=== PATIENT | male | born 1945 | race Caucasian/White ===

== ENCOUNTER 2020-10-27 10:41 | Inpatient (IN) ==
[2020-10-27] MEDS ORDERED: DILTIAZEM 50 MG/10 ML VIAL IV STA (11:01)
[2020-10-27] MEDS: DILTIAZEM INJ 100 MG in SODIUM CHLORIDE 0.9% 100 ML IV SCH ×2 (11:17→18:53)
[2020-10-27 11:21] LABS: Basophils % 0.2 % (0.0-0.8); Eosinophils # 0.2 10*3/uL (0.0-0.87); Eosinophils % 1.5 % (0.00-10.9); Hematocrit 47.3 VOL% (42.0-52.0); Hemoglobin 15.9 GM/DL (14.0-18.0); Immature Granulocytes % 0.5 %; Immature Granulocytes Absolute 0.07 #; Lymphocytes # 6.2 10*3/uL (1.4-4.0); Lymphocytes % 46.4 % (21.2-54.2); Mean Corpuscular HGB Conc 33.6 GM/DL (32-36); Mean Corpuscular Volume 93.5 FL (87-102); Mean Platelet Volume 10.2 FL (9.6-12.0); Monocytes % 9.6 % (1.7-12.7); Neutrophils % 41.8 % (38.7-73.9); Platelet Count 178 T/CUMM (130-400); Red Blood Count 5.06 MC/CUMM (3.8-5.5); Red Cell Distribution Width 13.4 % (9.3-17.3); White Blood Count 13.4 T/CUMM (4-12)
[2020-10-27 11:37] LABS: INR 2.4; PT Patient Result 24.8 SECS (9.8-11.9); Partial Thromboplastin Time 35.3 SECS (23.9-33.8)
[2020-10-27 11:42] LABS: Eosinophils 2 % (0-10); Lymphocytes 41 % (20-55); Platelet Estimate Adequate; Segmented Neutrophils 48 % (50-85); Total Cells Counted 100
[2020-10-27 11:43] LABS: Atypical Lymphocytes Few
[2020-10-27 11:46] LABS: Albumin 3.7 G/DL (3.4-5.0); Calcium 9.7 MG/DL (8.5-10.1); Osmolality,Calculated 279.4 MOS/KG (273-304); Potassium 4.6 MMOL/L (3.5-5.1); Total Protein 7.6 G/DL (6.4-8.2)
[2020-10-27] MEDS ORDERED: ACETAMINOPHEN 325 MG TABLET PO PRN (11:51)
[2020-10-27] MEDS ORDERED: GLUCAGON 1 MG VIAL IM PRN ×3 (11:51→15:53)
[2020-10-27] MEDS ORDERED: DEXTROSE 50% 25 GM/50 ML VIAL IV PRN ×3 (11:51→15:53)
[2020-10-27] MEDS ORDERED: ONDANSETRON 4 MG/2 ML VIAL IV PRN (11:51)
[2020-10-27] MEDS ORDERED: FUROSEMIDE 40 MG TABLET PO PRN (13:04)
[2020-10-27] MEDS: INSULIN LISPRO 100 UNIT/ML SUBCUT SCH ×2 (17:28→21:14)
[2020-10-27] MEDS ORDERED: METOPROLOL TARTRATE 50 MG TABLET PO SCH (21:00)
[2020-10-28] MEDS: DILTIAZEM INJ 100 MG in SODIUM CHLORIDE 0.9% 100 ML IV SCH (01:48)
[2020-10-28 06:55] LABS: Basophils % 0.1 % (0.0-0.8); Eosinophils # 0.2 10*3/uL (0.0-0.87); Eosinophils % 2.2 % (0.00-10.9); Hematocrit 42.6 VOL% (42.0-52.0); Hemoglobin 13.8 GM/DL (14.0-18.0); Immature Granulocytes % 0.5 %; Immature Granulocytes Absolute 0.05 #; Lymphocytes # 4.7 10*3/uL (1.4-4.0); Lymphocytes % 42.7 % (21.2-54.2); Mean Corpuscular HGB Conc 32.4 GM/DL (32-36); Mean Corpuscular Volume 96.8 FL (87-102); Mean Platelet Volume 10.4 FL (9.6-12.0); Monocytes % 7.8 % (1.7-12.7); Neutrophils % 46.7 % (38.7-73.9); Platelet Count 187 T/CUMM (130-400); Red Cell Distribution Width 13.5 % (9.3-17.3); White Blood Count 10.9 T/CUMM (4-12)
[2020-10-28 07:03] LABS: INR 1.8; PT Patient Result 18.9 SECS (9.8-11.9)
[2020-10-28 07:37] LABS: Calcium 9.1 MG/DL (8.5-10.1); Osmolality,Calculated 282.1 MOS/KG (273-304); Potassium 4.5 MMOL/L (3.5-5.1); Risk Ratio 6.5; Thyroid Stimulating Hormone 1.42 uIU/ml (0.358-3.74); VLDL CHOLESTEROL 31.2 MG/DL
[2020-10-28] MEDS: FENOFIBRATE 160 MG TABLET PO SCH (07:46)
[2020-10-28] MEDS ORDERED: DILTIAZEM CD 240 MG CAPSULE PO SCH (09:00)
[2020-10-28] MEDS: INSULIN LISPRO 100 UNIT/ML SUBCUT SCH ×4 (09:10→22:08)
[2020-10-28] MEDS: ATORVASTATIN 40 MG TABLET PO SCH (09:12)
[2020-10-28] MEDS: METOPROLOL TARTRATE 100 MG TABLET PO SCH ×2 (09:12→21:58)
[2020-10-28] MEDS: DIGOXIN 0.125 MG TABLET PO SCH (09:12)
[2020-10-28] MEDS: EZETIMIBE 10 MG TABLET PO SCH (09:12)
[2020-10-28] MEDS: WARFARIN 3 MG TABLET PO SCH (18:04)
[2020-10-29 06:23] LABS: Basophils % 0.3 % (0.0-0.8); Eosinophils # 0.2 10*3/uL (0.0-0.87); Hematocrit 42.4 VOL% (42.0-52.0); Hemoglobin 14.2 GM/DL (14.0-18.0); Immature Granulocytes % 0.8 %; Immature Granulocytes Absolute 0.08 #; Lymphocytes # 4.3 10*3/uL (1.4-4.0); Lymphocytes % 40.7 % (21.2-54.2); Mean Corpuscular HGB Conc 33.5 GM/DL (32-36); Mean Corpuscular Volume 95.3 FL (87-102); Mean Platelet Volume 10.5 FL (9.6-12.0); Monocytes % 7.4 % (1.7-12.7); Neutrophils % 48.8 % (38.7-73.9); Platelet Count 186 T/CUMM (130-400); Red Blood Count 4.45 MC/CUMM (3.8-5.5); Red Cell Distribution Width 13.4 % (9.3-17.3); White Blood Count 10.5 T/CUMM (4-12)
[2020-10-29 06:42] LABS: Calcium 9.2 MG/DL (8.5-10.1); Osmolality,Calculated 287.1 MOS/KG (273-304); Potassium 4.7 MMOL/L (3.5-5.1)
[2020-10-29 06:44] LABS: INR 2.2; PT Patient Result 23.1 SECS (9.8-11.9)
[2020-10-29] MEDS: INSULIN LISPRO 100 UNIT/ML SUBCUT SCH ×4 (08:50→21:48)
[2020-10-29] MEDS: EZETIMIBE 10 MG TABLET PO SCH (08:50)
[2020-10-29] MEDS: METOPROLOL TARTRATE 100 MG TABLET PO SCH ×2 (08:51→21:06)
[2020-10-29] MEDS: FENOFIBRATE 160 MG TABLET PO SCH (08:51)
[2020-10-29] MEDS: DIGOXIN 0.125 MG TABLET PO SCH (08:51)
[2020-10-29] MEDS: DILTIAZEM CD 180 MG CAPSULE PO SCH (08:51)
[2020-10-29] MEDS: ATORVASTATIN 40 MG TABLET PO SCH (08:51)
[2020-10-29] MEDS: INSULIN ASPART PROTAMINE/ASPART 70/30 100 UNIT/ML SUBCUT SCH ×2 (08:55→21:49)
[2020-10-29] MEDS: DILTIAZEM INJ 100 MG in SODIUM CHLORIDE 0.9% 100 ML IV SCH (11:26)
[2020-10-29] MEDS: WARFARIN 3 MG TABLET PO SCH (17:08)
[2020-10-30 06:14] LABS: INR 1.7; PT Patient Result 18.6 SECS (9.8-11.9)
[2020-10-30] MEDS: INSULIN LISPRO 100 UNIT/ML SUBCUT SCH ×2 (07:51→11:50)
[2020-10-30] MEDS: INSULIN ASPART PROTAMINE/ASPART 70/30 100 UNIT/ML SUBCUT SCH (08:17)
[2020-10-30] MEDS: ATORVASTATIN 40 MG TABLET PO SCH (08:18)
[2020-10-30] MEDS: METOPROLOL TARTRATE 100 MG TABLET PO SCH (08:19)
[2020-10-30] MEDS: EZETIMIBE 10 MG TABLET PO SCH (08:19)
[2020-10-30] MEDS: DILTIAZEM CD 180 MG CAPSULE PO SCH (08:19)
[2020-10-30] MEDS: DIGOXIN 0.125 MG TABLET PO SCH (08:20)
[2020-10-30] MEDS: FENOFIBRATE 160 MG TABLET PO SCH (08:23)
[2020-10-30 12:01] VITALS: BP 117/59
[2020-10-30] MEDS: DILTIAZEM INJ 100 MG in SODIUM CHLORIDE 0.9% 100 ML IV SCH (12:40)
== END 2020-10-30 13:00 | disposition home or self-care (01) | DRG 310 ==
LOC: N.EDINP 10:41 → N.ED 10:41 → N.TELEN 15:11 → SUATTDRO 10-29 13:50
PROVIDERS: ADMIT Internal Medicine; ATTEND Internal Medicine

== ENCOUNTER 2021-07-13 17:50 | Observation (INO) ==
[2021-07-13 19:00] LABS: Basophils % 0.1 % (0.0-0.8); Eosinophils % 0.2 % (0.00-10.9); Hematocrit 44.8 VOL% (42.0-52.0); Hemoglobin 14.8 GM/DL (14.0-18.0); Immature Granulocytes % 0.2 %; Immature Granulocytes Absolute 0.04 #; Lymphocytes # 8.4 10*3/uL (1.4-4.0); Lymphocytes % 50.9 % (21.2-54.2); Mean Corpuscular Volume 95.3 FL (87-102); Mean Platelet Volume 10.4 FL (9.6-12.0); Monocytes % 6.6 % (1.7-12.7); Platelet Count 182 T/CUMM (130-400); Red Cell Distribution Width 13.2 % (9.3-17.3); White Blood Count 16.5 T/CUMM (4-12)
[2021-07-13 19:19] LABS: Albumin 3.6 G/DL (3.4-5.0); Bilirubin,Total 0.7 MG/DL (0.20-1.00); Calcium 9.5 MG/DL (8.5-10.1); Osmolality,Calculated 283.8 MOS/KG (273-304); Potassium 3.8 MMOL/L (3.5-5.1); Total Protein 6.7 G/DL (6.4-8.2)
[2021-07-13 19:24] LABS: Band Neutrophils 1 % (0-10); Lymphocytes 52 % (20-55); Segmented Neutrophils 41 % (50-85); Total Cells Counted 100
[2021-07-13 19:25] LABS: Microcytosis Slight; Reactive Lymphocytes Few
[2021-07-13 19:26] LABS: Platelet Estimate Normal
[2021-07-13] MEDS ORDERED: DILTIAZEM 50 MG/10 ML VIAL IV STA (20:42)
[2021-07-13] MEDS ORDERED: DILTIAZEM INJ 100 MG in SODIUM CHLORIDE 0.9% 100 ML IV SCH (21:00)
[2021-07-13 21:20] LABS: PT Patient Result 21.2 SECS (10.5-12.0)
[2021-07-13 21:43] LABS: Albumin 3.5 G/DL (3.4-5.0); Bilirubin,Total 0.8 MG/DL (0.20-1.00); Calcium 9.2 MG/DL (8.5-10.1); Osmolality,Calculated 287.7 MOS/KG (273-304); Potassium 3.9 MMOL/L (3.5-5.1); Thyroid Stimulating Hormone 1.35 uIU/ml (0.358-3.74); Total Protein 6.7 G/DL (6.4-8.2)
[2021-07-13] MEDS ORDERED: DEXTROSE 50% 25 GM/50 ML VIAL IV PRN (21:54)
[2021-07-13] MEDS ORDERED: DOCUSATE SODIUM 100 MG CAPSULE PO PRN (21:54)
[2021-07-13] MEDS ORDERED: ONDANSETRON 4 MG/2 ML VIAL IV PRN (21:54)
[2021-07-13] MEDS ORDERED: SIMETHICONE CHEW 125 MG TABLET PO PRN (21:54)
[2021-07-13] MEDS ORDERED: ACETAMINOPHEN 325 MG TABLET PO PRN (21:54)
[2021-07-13] MEDS ORDERED: GLUCAGON 1 MG VIAL IM PRN (21:54)
[2021-07-13] MEDS ORDERED: MELATONIN 3 MG TABLET PO PRN (21:54)
[2021-07-13] MEDS ORDERED: DEXTROSE 50% 25 GM/50 ML SYRINGE IV PRN (22:19)
[2021-07-14] MEDS: DILTIAZEM INJ 100 MG in SODIUM CHLORIDE 0.9% 100 ML IV SCH (04:01)
[2021-07-14 06:52] LABS: Basophils % 0.1 % (0.0-0.8); Eosinophils % 0.3 % (0.00-10.9); Hematocrit 41.7 VOL% (42.0-52.0); Hemoglobin 13.4 GM/DL (14.0-18.0); Immature Granulocytes % 0.4 %; Immature Granulocytes Absolute 0.05 #; Lymphocytes # 6.8 10*3/uL (1.4-4.0); Lymphocytes % 50.3 % (21.2-54.2); Mean Corpuscular HGB Conc 32.1 GM/DL (32-36); Mean Corpuscular Volume 97.2 FL (87-102); Mean Platelet Volume 10.3 FL (9.6-12.0); Monocytes % 8.5 % (1.7-12.7); Neutrophils % 40.4 % (38.7-73.9); Platelet Count 162 T/CUMM (130-400); Red Blood Count 4.29 MC/CUMM (3.8-5.5); Red Cell Distribution Width 13.6 % (9.3-17.3); White Blood Count 13.6 T/CUMM (4-12)
[2021-07-14 07:07] LABS: INR 1.9; PT Patient Result 19.8 SECS (10.5-12.0)
[2021-07-14 07:12] LABS: Eosinophils 1 % (0-10); Lymphocytes 40 % (20-55); Platelet Estimate Adequate; Segmented Neutrophils 49 % (50-85); Total Cells Counted 100
[2021-07-14 07:13] LABS: Hypochromia Slight; Microcytosis Slight
[2021-07-14 07:23] LABS: Albumin 2.9 G/DL (3.4-5.0); Bilirubin,Total 0.8 MG/DL (0.20-1.00); Calcium 8.6 MG/DL (8.5-10.1); Ferritin 352.2 ng/mL (26-388); Osmolality,Calculated 286.7 MOS/KG (273-304); Potassium 3.8 MMOL/L (3.5-5.1); Total Protein 6.2 G/DL (6.4-8.2)
[2021-07-14] MEDS: INSULIN REGULAR 100 UNIT/ML SUBCUT SCH ×4 (08:19→21:52)
[2021-07-14] MEDS: AZITHROMYCIN 250 MG TABLET PO SCH (09:16)
[2021-07-14] MEDS: ASCORBIC ACID 500 MG TABLET PO SCH ×2 (09:17→21:53)
[2021-07-14] MEDS: FAMOTIDINE 20 MG TABLET PO SCH ×2 (09:17→21:53)
[2021-07-14] MEDS: CHOLECALCIFEROL 1,000 UNIT TABLET PO SCH (09:17)
[2021-07-14] MEDS: CETIRIZINE 10 MG TABLET PO SCH (09:17)
[2021-07-14] MEDS: ZINC GLUCONATE 50 MG TABLET PO SCH (09:17)
[2021-07-14] MEDS: ATORVASTATIN 40 MG TABLET PO SCH (09:19)
[2021-07-14] MEDS: METOPROLOL TARTRATE 100 MG TABLET PO SCH ×2 (09:19→21:53)
[2021-07-14] MEDS ORDERED: NITROGLYCERIN SL 0.4 MG TABLET SL PRN (09:43)
[2021-07-14] MEDS ORDERED: DILTIAZEM INJ 100 MG in SODIUM CHLORIDE 0.9% 100 ML IV SCH (10:30)
[2021-07-14] MEDS: DILTIAZEM CD 180 MG CAPSULE PO SCH (12:23)
[2021-07-14] MEDS: DIGOXIN 0.125 MG TABLET PO SCH (12:23)
[2021-07-14] MEDS: WARFARIN 3 MG TABLET PO SCH (17:32)
[2021-07-15 05:06] LABS: Basophils % 0.1 % (0.0-0.8); Eosinophils # 0.1 10*3/uL (0.0-0.87); Eosinophils % 0.8 % (0.00-10.9); Hematocrit 43.5 VOL% (42.0-52.0); Hemoglobin 13.9 GM/DL (14.0-18.0); Immature Granulocytes % 0.3 %; Immature Granulocytes Absolute 0.04 #; Lymphocytes # 7.9 10*3/uL (1.4-4.0); Lymphocytes % 54.5 % (21.2-54.2); Mean Platelet Volume 10.4 FL (9.6-12.0); Monocytes % 8.1 % (1.7-12.7); Neutrophils % 36.2 % (38.7-73.9); Platelet Count 169 T/CUMM (130-400); Red Blood Count 4.44 MC/CUMM (3.8-5.5); Red Cell Distribution Width 13.5 % (9.3-17.3); White Blood Count 14.4 T/CUMM (4-12)
[2021-07-15 05:16] LABS: INR 1.7; PT Patient Result 17.8 SECS (10.5-12.0)
[2021-07-15 05:25] LABS: Eosinophils 1 % (0-10); Lymphocytes 56 % (20-55); Platelet Estimate Adequate; Segmented Neutrophils 39 % (50-85); Total Cells Counted 100
[2021-07-15 05:26] LABS: Atypical Lymphocytes Few; Hypochromia Slight; Microcytosis Slight
[2021-07-15 05:36] LABS: Calcium 9.3 MG/DL (8.5-10.1); Osmolality,Calculated 278.2 MOS/KG (273-304); Potassium 3.9 MMOL/L (3.5-5.1)
[2021-07-15] MEDS: INSULIN REGULAR 100 UNIT/ML SUBCUT SCH ×4 (07:48→21:46)
[2021-07-15] MEDS: ASPIRIN EC 81 MG TABLET PO SCH (09:05)
[2021-07-15] MEDS: METOPROLOL TARTRATE 100 MG TABLET PO SCH ×2 (09:06→21:24)
[2021-07-15] MEDS: CETIRIZINE 10 MG TABLET PO SCH (09:06)
[2021-07-15] MEDS: ZINC GLUCONATE 50 MG TABLET PO SCH (09:06)
[2021-07-15] MEDS: ATORVASTATIN 40 MG TABLET PO SCH (09:06)
[2021-07-15] MEDS: ASCORBIC ACID 500 MG TABLET PO SCH ×2 (09:06→21:24)
[2021-07-15] MEDS: CHOLECALCIFEROL 1,000 UNIT TABLET PO SCH (09:06)
[2021-07-15] MEDS: FAMOTIDINE 20 MG TABLET PO SCH ×2 (09:06→21:24)
[2021-07-15] MEDS: AZITHROMYCIN 250 MG TABLET PO SCH (09:06)
[2021-07-15] MEDS: FENOFIBRATE 160 MG TABLET PO SCH (09:46)
[2021-07-15] MEDS: EZETIMIBE 10 MG TABLET PO SCH (09:46)
[2021-07-15] MEDS: DILTIAZEM CD 180 MG CAPSULE PO SCH (09:46)
[2021-07-15] MEDS ORDERED: DILTIAZEM CD 120 MG CAPSULE PO ONE (10:08)
[2021-07-15] MEDS: DIGOXIN 0.125 MG TABLET PO SCH (13:20)
[2021-07-15 17:11] LABS: Bilirubin,Urine Negative (Negative); Blood, Urine Negative (Negative); Glucose,Urine (UA) >=500 mg/dL (Negative); Ketones,Urine 5 mg/dL (Negative); Mucus,Urine Occasional /LPF (Occasional); Nitrite,Urine Negative (Negative); Protein,Urine 100 MG/DL; Squamous Epithelial Cell,Urine Occasional /HPF (0-10); Urine Appearance CLEAR (Clear); Urine Color Yellow (Yellow); Urine Specific Gravity 1.026 (1.001-1.035); Urine Urobilinogen < 2.0 EU/DL (<2.0)
[2021-07-15] MEDS: WARFARIN 3 MG TABLET PO SCH (18:31)
[2021-07-16] MEDS: DILTIAZEM INJ 100 MG in SODIUM CHLORIDE 0.9% 100 ML IV SCH (06:38)
[2021-07-16 06:39] LABS: Basophils % 0.2 % (0.0-0.8); Eosinophils # 0.1 10*3/uL (0.0-0.87); Eosinophils % 1.1 % (0.00-10.9); Hematocrit 44.6 VOL% (42.0-52.0); Immature Granulocytes % 0.2 %; Immature Granulocytes Absolute 0.03 #; Lymphocytes # 7.1 10*3/uL (1.4-4.0); Lymphocytes % 57.6 % (21.2-54.2); Mean Corpuscular HGB Conc 31.4 GM/DL (32-36); Mean Platelet Volume 10.6 FL (9.6-12.0); Monocytes % 7.7 % (1.7-12.7); Neutrophils % 33.2 % (38.7-73.9); Platelet Count 173 T/CUMM (130-400); Red Blood Count 4.46 MC/CUMM (3.8-5.5); Red Cell Distribution Width 13.3 % (9.3-17.3); White Blood Count 12.3 T/CUMM (4-12)
[2021-07-16 06:59] LABS: Calcium 8.4 MG/DL (8.5-10.1); Osmolality,Calculated 289.8 MOS/KG (273-304); Potassium 4.1 MMOL/L (3.5-5.1)
[2021-07-16 07:10] LABS: Eosinophils 2 % (0-10); Lymphocytes 47 % (20-55); Platelet Estimate Normal; Segmented Neutrophils 44 % (50-85); Total Cells Counted 100
[2021-07-16] MEDS: EZETIMIBE 10 MG TABLET PO SCH (08:44)
[2021-07-16] MEDS: FENOFIBRATE 160 MG TABLET PO SCH (08:44)
[2021-07-16] MEDS: METOPROLOL TARTRATE 100 MG TABLET PO SCH ×2 (08:44→20:58)
[2021-07-16] MEDS: ZINC GLUCONATE 50 MG TABLET PO SCH (08:44)
[2021-07-16] MEDS: ASCORBIC ACID 500 MG TABLET PO SCH ×2 (08:44→20:58)
[2021-07-16] MEDS: INSULIN REGULAR 100 UNIT/ML SUBCUT SCH ×4 (08:44→20:58)
[2021-07-16] MEDS: FAMOTIDINE 20 MG TABLET PO SCH ×2 (08:45→20:58)
[2021-07-16] MEDS: CETIRIZINE 10 MG TABLET PO SCH (08:45)
[2021-07-16] MEDS: CHOLECALCIFEROL 1,000 UNIT TABLET PO SCH (08:45)
[2021-07-16] MEDS: ASPIRIN EC 81 MG TABLET PO SCH (08:45)
[2021-07-16] MEDS: DEXAMETHASONE 4 MG TABLET PO SCH (08:45)
[2021-07-16] MEDS: ATORVASTATIN 40 MG TABLET PO SCH (08:45)
[2021-07-16] MEDS ORDERED: DILTIAZEM CD 240 MG CAPSULE PO SCH (09:00)
[2021-07-16] MEDS ORDERED: DILTIAZEM CD 120 MG CAPSULE PO ONE (10:04)
[2021-07-16 10:43] LABS: PT Patient Result 21.1 SECS (10.5-12.0)
[2021-07-16] MEDS: LOSARTAN 50 MG TABLET PO SCH (12:15)
[2021-07-16] MEDS: DIGOXIN 0.125 MG TABLET PO SCH (13:45)
[2021-07-16] MEDS: WARFARIN 3 MG TABLET PO SCH (18:03)
[2021-07-17 05:36] LABS: Basophils % 0.1 % (0.0-0.8); Hematocrit 46.9 VOL% (42.0-52.0); Hemoglobin 15.1 GM/DL (14.0-18.0); Immature Granulocytes % 0.4 %; Immature Granulocytes Absolute 0.06 #; Lymphocytes # 8.7 10*3/uL (1.4-4.0); Lymphocytes % 54.2 % (21.2-54.2); Mean Corpuscular HGB Conc 32.2 GM/DL (32-36); Mean Corpuscular Volume 97.5 FL (87-102); Mean Platelet Volume 10.3 FL (9.6-12.0); Monocytes % 3.5 % (1.7-12.7); Neutrophils % 41.8 % (38.7-73.9); Platelet Count 204 T/CUMM (130-400); Red Blood Count 4.81 MC/CUMM (3.8-5.5); Red Cell Distribution Width 13.1 % (9.3-17.3); White Blood Count 16.1 T/CUMM (4-12)
[2021-07-17 05:44] LABS: PT Patient Result 21.4 SECS (10.5-12.0)
[2021-07-17 06:19] LABS: Calcium 8.6 MG/DL (8.5-10.1); Osmolality,Calculated 293.7 MOS/KG (273-304); Potassium 4.4 MMOL/L (3.5-5.1)
[2021-07-17] MEDS: INSULIN REGULAR 100 UNIT/ML SUBCUT SCH (08:27)
[2021-07-17] MEDS: ASPIRIN EC 81 MG TABLET PO SCH (08:27)
[2021-07-17] MEDS: LOSARTAN 50 MG TABLET PO SCH (08:31)
[2021-07-17] MEDS: DEXAMETHASONE 4 MG TABLET PO SCH (08:31)
[2021-07-17] MEDS: METOPROLOL TARTRATE 100 MG TABLET PO SCH (08:32)
[2021-07-17] MEDS: ATORVASTATIN 40 MG TABLET PO SCH (08:32)
[2021-07-17] MEDS: FENOFIBRATE 160 MG TABLET PO SCH (08:33)
[2021-07-17] MEDS: ZINC GLUCONATE 50 MG TABLET PO SCH (08:33)
[2021-07-17] MEDS: EZETIMIBE 10 MG TABLET PO SCH (08:33)
[2021-07-17] MEDS: CHOLECALCIFEROL 1,000 UNIT TABLET PO SCH (08:33)
[2021-07-17] MEDS: FAMOTIDINE 20 MG TABLET PO SCH (08:33)
[2021-07-17] MEDS: CETIRIZINE 10 MG TABLET PO SCH (08:34)
[2021-07-17] MEDS: ASCORBIC ACID 500 MG TABLET PO SCH (08:34)
[2021-07-17 08:36] VITALS: BP 128/105
[2021-07-17] MEDS ORDERED: DILTIAZEM CD 180 MG CAPSULE PO SCH (09:00)
== END 2021-07-17 09:45 | disposition home or self-care (01) ==
LOC: N.ED 17:50 → N.EDINP 21:54 → INTOOBSV 21:54 → SUATTDRO 21:54 → N.CC 07-15 19:28
PROVIDERS: ADMIT Hospitalist; ATTEND Internal Medicine

== ENCOUNTER 2022-08-16 21:49 | Observation (INO) ==
[2022-08-16] MEDS ORDERED: DILTIAZEM 25 MG/5 ML VIAL IV ONE (22:04)
[2022-08-16] MEDS ORDERED: DILTIAZEM 100 MG VIAL.ADD IV ONE (22:04)
[2022-08-16] MEDS ORDERED: DILTIAZEM 50 MG/10 ML VIAL IV STA (22:08)
[2022-08-16] MEDS ORDERED: MORPHINE 2 MG/1 ML SYRINGE IV STA ×2 (22:11→23:54)
[2022-08-16] MEDS ORDERED: ONDANSETRON 4 MG/2 ML VIAL IV STA ×2 (22:11→23:54)
[2022-08-16] MEDS: DILTIAZEM INJ 100 MG in SODIUM CHLORIDE 0.9% 100 ML IV SCH (22:12)
[2022-08-16 22:30] LABS: Basophils % 0.2 % (0.0-0.8); Hematocrit 41.6 VOL% (42.0-52.0); Hemoglobin 13.6 GM/DL (14.0-18.0); Immature Granulocytes % 0.4 %; Immature Granulocytes Absolute 0.06 #; Lymphocytes # 7.8 10*3/uL (1.4-4.0); Lymphocytes % 49.6 % (21.2-54.2); Mean Corpuscular HGB Conc 32.7 GM/DL (32-36); Mean Corpuscular Volume 94.8 FL (87-102); Mean Platelet Volume 10.3 FL (9.6-12.0); Monocytes # 1.5 10*3/uL (0.11-0.8); Monocytes % 9.6 % (1.7-12.7); Neutrophils % 40.2 % (38.7-73.9); Platelet Count 217 T/CUMM (130-400); Red Blood Count 4.39 MC/CUMM (3.8-5.5); Red Cell Distribution Width 13.2 % (9.3-17.3); White Blood Count 15.77 T/CUMM (4-12)
[2022-08-16 22:40] LABS: INR 1.3; PT Patient Result 13.9 SECS (10.1-12.1)
[2022-08-16 22:53] LABS: Lymphocytes 53 % (20-55); Platelet Estimate Adequate; Total Cells Counted 100
[2022-08-16 23:01] LABS: Alanine Aminotransferase 22 U/L (16-61); Albumin 2.8 G/DL (3.4-5.0); Alkaline Phosphatase 37 U/L (45-117); Aspartate Amino Transferase 25 U/L (0-37); Blood Urea Nitrogen 34 MG/DL (7-18); Calcium 8.6 MG/DL (8.5-10.1); Carbon Dioxide 21 MMOL/L (21-32); Chloride 106 MMOL/L (98-107); Glucose 85 MG/DL (74-106); Osmolality,Calculated 279.8 MOS/KG (273-304); Sodium 137 MMOL/L (136-145); Total Protein 6.1 G/DL (6.4-8.2)
[2022-08-16] MEDS ORDERED: ENOXAPARIN 100 MG/ML SYRINGE SUBCUT STA (23:53)
[2022-08-16] MEDS ORDERED: NITROGLYCERIN 2% OINT 1 INCH/GM PACK TOP STA (23:54)
[2022-08-16] MEDS: ASPIRIN EC 325 MG TABLET PO STA ×2 (23:58)
[2022-08-17] MEDS ORDERED: diphenhydrAMINE CAP 25 MG CAPSULE PO PRN (00:24)
[2022-08-17] MEDS ORDERED: ONDANSETRON 4 MG/2 ML VIAL IV PRN (00:24)
[2022-08-17] MEDS ORDERED: hydrALAZINE 20 MG/1 ML VIAL IV PRN (00:24)
[2022-08-17] MEDS ORDERED: ACETAMINOPHEN 325 MG TABLET PO PRN (00:24)
[2022-08-17] MEDS ORDERED: ZALEPLON 5 MG CAPSULE PO PRN (00:24)
[2022-08-17] MEDS ORDERED: NICOTINE 21 MG/24 HR PATCH TRANSDERM PRN (00:24)
[2022-08-17] MEDS ORDERED: MORPHINE 2 MG/1 ML SYRINGE IV PRN (00:24)
[2022-08-17] MEDS ORDERED: PROMETHAZINE 25 MG/1 ML VIAL IM PRN (00:24)
[2022-08-17] MEDS ORDERED: guaiFENesin/DM ER 600-30 MG TABLET PO PRN (00:24)
[2022-08-17 02:48] LABS: Mucus,Urine Occasional /LPF (Occasional); RBC,Urine 5 /HPF (0-4); Squamous Epithelial Cell,Urine Occasional /HPF (0-10); Urine Color Yellow (Yellow)
[2022-08-17 02:49] LABS: Bilirubin,Urine Small mg/dL (Negative); Blood, Urine Moderate mg/dL (Negative); Glucose,Urine (UA) 500 mg/dL (Negative); Ketones,Urine Negative (Negative); Nitrite,Urine Negative (Negative); Protein,Urine >=300 mg/dL (Negative); Urine Appearance Clear (Clear); Urine Urobilinogen 0.2 eU/dL (<2.0); Urine pH 5.5 (4.5-8.0)
[2022-08-17 02:55] LABS: Barbiturates Screen,Urine Negative (Negative); Benzodiazepines Screen,Urine Negative (Negative); Cannabinoid Screen,Urine Negative (Negative); Opiate Screen,Urine Positive (Negative); Phencyclidine Screen,Urine Negative (Negative)
[2022-08-17 05:02] LABS: Basophils % 0.2 % (0.0-0.8); Hematocrit 39.6 VOL% (42.0-52.0); Hemoglobin 12.7 GM/DL (14.0-18.0); Immature Granulocytes % 0.3 %; Immature Granulocytes Absolute 0.05 #; Lymphocytes # 8.2 10*3/uL (1.4-4.0); Lymphocytes % 49.2 % (21.2-54.2); Mean Corpuscular HGB Conc 32.1 GM/DL (32-36); Mean Corpuscular Volume 96.8 FL (87-102); Mean Platelet Volume 10.4 FL (9.6-12.0); Monocytes # 1.7 10*3/uL (0.11-0.8); Monocytes % 10.4 % (1.7-12.7); Neutrophils % 39.9 % (38.7-73.9); Platelet Count 212 T/CUMM (130-400); Red Blood Count 4.09 MC/CUMM (3.8-5.5); Red Cell Distribution Width 13.5 % (9.3-17.3); White Blood Count 16.66 T/CUMM (4-12)
[2022-08-17 05:27] LABS: Band Neutrophils 5 % (0-10); Lymphocytes 58 % (20-55); Total Cells Counted 100
[2022-08-17 05:34] LABS: Calcium 8.8 MG/DL (8.5-10.1); Osmolality,Calculated 278.8 MOS/KG (273-304); Potassium 3.7 MMOL/L (3.5-5.1)
[2022-08-17] MEDS ORDERED: DEXTROSE 50% 25 GM/50 ML SYRINGE IV ONE ×3 (05:39→06:00)
[2022-08-17] MEDS ORDERED: DEXTROSE 10% 250 ML BAG IV PRN (05:43)
[2022-08-17] MEDS: POTASSIUM CHLORIDE RIDER 10 MEQ/100 ML PREMIX IV SCH ×2 (06:06→19:57)
[2022-08-17] MEDS ORDERED: cefTRIAXone 1,000 MG in SODIUM CHLORIDE 0.9% 100 ML IV STA (06:39)
[2022-08-17] MEDS ORDERED: DIGOXIN 0.5 MG/2 ML AMP IV ONE ×2 (10:47→13:00)
[2022-08-17] MEDS ORDERED: FUROSEMIDE 40 MG/4 ML VIAL IV ONE (11:03)
[2022-08-17] MEDS: DEXTROSE 5% NACL 0.9% 1,000 ML IV SCH (11:58)
[2022-08-17] MEDS: ALBUTEROL/IPRATROPIUM 3 ML NEB RESP TX SCH ×2 (14:30→20:03)
[2022-08-17 14:48] LABS: Basophils % 0.2 % (0.0-0.8); Hematocrit 40.1 VOL% (42.0-52.0); Hemoglobin 12.8 GM/DL (14.0-18.0); Immature Granulocytes % 0.5 %; Immature Granulocytes Absolute 0.09 #; Lymphocytes # 8.4 10*3/uL (1.4-4.0); Lymphocytes % 47.5 % (21.2-54.2); Mean Corpuscular HGB Conc 31.9 GM/DL (32-36); Mean Corpuscular Volume 96.9 FL (87-102); Mean Platelet Volume 10.2 FL (9.6-12.0); Monocytes # 1.5 10*3/uL (0.11-0.8); Monocytes % 8.2 % (1.7-12.7); Neutrophils % 43.6 % (38.7-73.9); Platelet Count 200 T/CUMM (130-400); Red Blood Count 4.14 MC/CUMM (3.8-5.5); Red Cell Distribution Width 13.6 % (9.3-17.3)
[2022-08-17] MEDS: BISACODYL 5 MG TABLET PO SCH (15:08)
[2022-08-17] MEDS: cefTRIAXone 1,000 MG in SODIUM CHLORIDE 0.9% 100 ML IV SCH (15:08)
[2022-08-17] MEDS: DILTIAZEM 30 MG TABLET PO SCH ×2 (15:09→18:02)
[2022-08-17] MEDS: ENOXAPARIN 100 MG/ML SYRINGE SUBCUT SCH (15:10)
[2022-08-17] MEDS: AZITHROMYCIN INJ 500 MG in SODIUM CHLORIDE 0.9% 250 ML IV SCH (16:13)
[2022-08-17 16:39] LABS: Band Neutrophils 18 % (0-10); Lymphocytes 59 % (20-55); Platelet Estimate Adequate; Total Cells Counted 100
[2022-08-17] MEDS: DILTIAZEM INJ 100 MG in SODIUM CHLORIDE 0.9% 100 ML IV SCH (21:59)
[2022-08-17] MEDS: ASCORBIC ACID 500 MG TABLET PO SCH (22:07)
[2022-08-18] MEDS: DILTIAZEM 30 MG TABLET PO SCH ×3 (00:53→13:37)
[2022-08-18] MEDS: ENOXAPARIN 100 MG/ML SYRINGE SUBCUT SCH ×2 (00:53→13:27)
[2022-08-18] MEDS: DEXTROSE 5% NACL 0.9% 1,000 ML IV SCH ×3 (00:56→23:01)
[2022-08-18] MEDS: ALBUTEROL/IPRATROPIUM 3 ML NEB RESP TX SCH ×4 (02:24→19:50)
[2022-08-18 05:32] LABS: Calcium 8.2 MG/DL (8.5-10.1); Potassium 3.9 MMOL/L (3.5-5.1)
[2022-08-18 05:37] LABS: Risk Ratio 4.15; VLDL Cholesterol 16.6 MG/DL
[2022-08-18 05:48] LABS: Basophils % 0.2 % (0.0-0.8); Eosinophils % 0.1 % (0.00-10.9); Hematocrit 42.6 VOL% (42.0-52.0); Hemoglobin 14.3 GM/DL (14.0-18.0); Immature Granulocytes % 0.5 %; Immature Granulocytes Absolute 0.09 #; Lymphocytes # 7.1 10*3/uL (1.4-4.0); Lymphocytes % 40.8 % (21.2-54.2); Mean Corpuscular HGB Conc 33.6 GM/DL (32-36); Mean Corpuscular Volume 95.9 FL (87-102); Mean Platelet Volume 10.8 FL (9.6-12.0); Monocytes # 1.3 10*3/uL (0.11-0.8); Monocytes % 7.6 % (1.7-12.7); Neutrophils % 50.8 % (38.7-73.9); Platelet Count 192 T/CUMM (130-400); Red Blood Count 4.44 MC/CUMM (3.8-5.5); Red Cell Distribution Width 13.8 % (9.3-17.3); White Blood Count 17.26 T/CUMM (4-12)
[2022-08-18 06:04] LABS: Band Neutrophils 4 % (0-10); Lymphocytes 49 % (20-55); Total Cells Counted 100
[2022-08-18 06:06] LABS: Platelet Estimate Adequate
[2022-08-18] MEDS: DIGOXIN 0.125 MG TABLET PO SCH (08:46)
[2022-08-18] MEDS: EZETIMIBE 10 MG TABLET PO SCH (08:46)
[2022-08-18] MEDS: BISACODYL 5 MG TABLET PO SCH (08:46)
[2022-08-18] MEDS: AZITHROMYCIN INJ 500 MG in SODIUM CHLORIDE 0.9% 250 ML IV SCH (08:47)
[2022-08-18] MEDS: ASCORBIC ACID 500 MG TABLET PO SCH ×2 (08:47→20:58)
[2022-08-18] MEDS: ASPIRIN EC 81 MG TABLET PO SCH (08:47)
[2022-08-18] MEDS: ATORVASTATIN 40 MG TABLET PO SCH (08:47)
[2022-08-18] MEDS: cefTRIAXone 1,000 MG in SODIUM CHLORIDE 0.9% 100 ML IV SCH (08:48)
[2022-08-18] MEDS: FENOFIBRATE 160 MG TABLET PO SCH (09:05)
[2022-08-18] MEDS: DILTIAZEM INJ 100 MG in SODIUM CHLORIDE 0.9% 100 ML IV SCH ×2 (09:06→23:02)
[2022-08-18] MEDS: MONTELUKAST 10 MG TABLET PO SCH ×2 (11:51→20:59)
[2022-08-18] MEDS ORDERED: DIGOXIN 0.5 MG/2 ML AMP IV ONE (12:36)
[2022-08-18] MEDS: DILTIAZEM 60 MG TABLET PO SCH (18:25)
[2022-08-19] MEDS: ENOXAPARIN 100 MG/ML SYRINGE SUBCUT SCH ×3 (00:18→23:30)
[2022-08-19] MEDS: DILTIAZEM 60 MG TABLET PO SCH ×2 (00:18→06:10)
[2022-08-19] MEDS: ALBUTEROL/IPRATROPIUM 3 ML NEB RESP TX SCH ×4 (01:20→20:03)
[2022-08-19 05:21] LABS: Basophils % 0.1 % (0.0-0.8); Eosinophils % 0.1 % (0.00-10.9); Hematocrit 38.1 VOL% (42.0-52.0); Hemoglobin 12.5 GM/DL (14.0-18.0); Immature Granulocytes % 0.8 %; Immature Granulocytes Absolute 0.15 #; Lymphocytes # 7.9 10*3/uL (1.4-4.0); Lymphocytes % 40.7 % (21.2-54.2); Mean Corpuscular HGB Conc 32.8 GM/DL (32-36); Mean Corpuscular Volume 96.2 FL (87-102); Mean Platelet Volume 10.1 FL (9.6-12.0); Monocytes # 1.1 10*3/uL (0.11-0.8); Monocytes % 5.4 % (1.7-12.7); Neutrophils % 52.9 % (38.7-73.9); Platelet Count 263 T/CUMM (130-400); Red Blood Count 3.96 MC/CUMM (3.8-5.5); Red Cell Distribution Width 13.7 % (9.3-17.3); White Blood Count 19.41 T/CUMM (4-12)
[2022-08-19 05:24] LABS: INR 1.3; PT Patient Result 13.7 SECS (10.1-12.1)
[2022-08-19 05:32] LABS: Calcium 8.6 MG/DL (8.5-10.1); Potassium 3.6 MMOL/L (3.5-5.1)
[2022-08-19 05:34] LABS: Lymphocytes 35 % (20-55); Platelet Estimate Normal; Total Cells Counted 100
[2022-08-19] MEDS ORDERED: POTASSIUM CHLORIDE 20 MEQ TABLET PO ONE (08:01)
[2022-08-19] MEDS: FENOFIBRATE 160 MG TABLET PO SCH (10:29)
[2022-08-19] MEDS: DILTIAZEM CD 240 MG CAPSULE PO SCH (10:29)
[2022-08-19] MEDS: ATORVASTATIN 40 MG TABLET PO SCH (10:30)
[2022-08-19] MEDS: DIGOXIN 0.125 MG TABLET PO SCH (10:30)
[2022-08-19] MEDS: ASPIRIN EC 81 MG TABLET PO SCH (10:30)
[2022-08-19] MEDS: ASCORBIC ACID 500 MG TABLET PO SCH ×2 (10:30→21:05)
[2022-08-19] MEDS: MONTELUKAST 10 MG TABLET PO SCH ×2 (10:31→21:05)
[2022-08-19] MEDS: BISACODYL 5 MG TABLET PO SCH (10:31)
[2022-08-19] MEDS: EZETIMIBE 10 MG TABLET PO SCH (10:32)
[2022-08-19] MEDS: cefTRIAXone 1,000 MG in SODIUM CHLORIDE 0.9% 100 ML IV SCH (10:35)
[2022-08-19] MEDS: AZITHROMYCIN INJ 500 MG in SODIUM CHLORIDE 0.9% 250 ML IV SCH (10:36)
[2022-08-19] MEDS: ALBUTEROL 2 MG TABLET PO SCH (16:44)
[2022-08-20] MEDS: ALBUTEROL/IPRATROPIUM 3 ML NEB RESP TX SCH ×2 (00:40→07:36)
[2022-08-20 05:31] LABS: Basophils % 0.1 % (0.0-0.8); Eosinophils % 0.1 % (0.00-10.9); Hematocrit 39.1 VOL% (42.0-52.0); Hemoglobin 12.8 GM/DL (14.0-18.0); Immature Granulocytes % 0.7 %; Immature Granulocytes Absolute 0.12 #; Lymphocytes # 7.2 10*3/uL (1.4-4.0); Lymphocytes % 42.1 % (21.2-54.2); Mean Corpuscular HGB Conc 32.7 GM/DL (32-36); Mean Corpuscular Volume 96.3 FL (87-102); Mean Platelet Volume 10.2 FL (9.6-12.0); Monocytes % 5.7 % (1.7-12.7); Neutrophils % 51.3 % (38.7-73.9); Platelet Count 294 T/CUMM (130-400); Red Blood Count 4.06 MC/CUMM (3.8-5.5); Red Cell Distribution Width 13.8 % (9.3-17.3); White Blood Count 17.04 T/CUMM (4-12)
[2022-08-20 05:41] LABS: INR 1.2
[2022-08-20 05:50] LABS: Lymphocytes 35 % (20-55); Platelet Estimate Adequate; Total Cells Counted 100
[2022-08-20 05:51] LABS: Osmolality,Calculated 288.8 MOS/KG (273-304); Potassium 3.8 MMOL/L (3.5-5.1)
[2022-08-20] MEDS: DEXTROSE 5% NACL 0.9% 1,000 ML IV SCH (07:57)
[2022-08-20] MEDS: cefTRIAXone 1,000 MG in SODIUM CHLORIDE 0.9% 100 ML IV SCH (08:23)
[2022-08-20] MEDS ORDERED: MUPIROCIN 2% OINT 22 GM TUBE TOP SCH (09:30)
[2022-08-20] MEDS: AZITHROMYCIN INJ 500 MG in SODIUM CHLORIDE 0.9% 250 ML IV SCH (09:54)
[2022-08-20] MEDS: ASCORBIC ACID 500 MG TABLET PO SCH ×2 (09:54→10:17)
[2022-08-20] MEDS: DIGOXIN 0.125 MG TABLET PO SCH (09:55)
[2022-08-20] MEDS: ATORVASTATIN 40 MG TABLET PO SCH (09:55)
[2022-08-20] MEDS: BISACODYL 5 MG TABLET PO SCH ×2 (09:55→10:17)
[2022-08-20] MEDS: EZETIMIBE 10 MG TABLET PO SCH (09:55)
[2022-08-20] MEDS: DILTIAZEM CD 240 MG CAPSULE PO SCH (09:55)
[2022-08-20] MEDS: MONTELUKAST 10 MG TABLET PO SCH (09:55)
[2022-08-20] MEDS: ASPIRIN EC 81 MG TABLET PO SCH (09:55)
[2022-08-20] MEDS: FENOFIBRATE 160 MG TABLET PO SCH (09:55)
[2022-08-20] MEDS ORDERED: hydrALAZINE 25 MG TABLET PO SCH (10:00)
[2022-08-20] MEDS: ENOXAPARIN 100 MG/ML SYRINGE SUBCUT SCH (12:00)
[2022-08-20 12:10] VITALS: BP 132/54
[2022-08-20] MEDS: ALBUTEROL 2 MG TABLET PO SCH (13:03)
[2022-08-20] MEDS ORDERED: APIXABAN 5 MG TABLET PO SCH (21:00)
== END 2022-08-20 14:45 | disposition home or self-care (01) ==
LOC: N.EDINP 21:49 → N.ED 21:49 → SUATTDRO 08-17 00:24 → N.EDINP 08-17 16:22 → N.TELEN 08-17 16:24
PROVIDERS: ADMIT Internal Medicine; ATTEND Internal Medicine